=== PATIENT | male | born 1995 | race Caucasian/White ===

== ENCOUNTER → 2017-09-06 | Outpatient (REF) | payer BC | LOC: ZZSENDIN 10:50 | PROVIDERS: ATTEND Family Medicine | DX: R42 Dizziness and giddiness (principal); R50.9 Fever, unspecified | CPT/HCPCS: 82040; 82247; 82310; 82374; 82435; 82565; 82947; 84075; 84132; 84155; 84295; 84450; 84460; 84520; 85027 ==

== ENCOUNTER → 2018-08-22 | Outpatient (REF) | payer BC ==
[2018-08-22 15:36] LABS: PLATELET COUNT, AUTOMATED 249 K/uL (150-450)
== END ==
PROVIDERS: ATTEND Family Medicine
DX: J11.1 Influenza due to unidentified influenza virus with other respiratory manifestations (principal); J11.00 Influenza due to unidentified influenza virus with unspecified type of pneumonia
CPT/HCPCS: 82040; 82247; 82310; 82374; 82435; 82565; 82947; 84075; 84132; 84155; 84295; 84450; 84460; 84520; 85025; 86140; 87070

== ENCOUNTER → 2018-09-09 | Outpatient (CLI) | payer OTHER ==
--- NOTE | 2018-09-09 09:41 | RADIOLOGY IMAGING REPORT ---
FACILITY: [facility] - [place] PATIENT NAME: Kostas Manzo : 1995 MR: [id number] V: [id number] EXAM DATE: ORDERING PHYSICIAN: DINA RAMIREZ TECHNOLOGIST: Location: [facility] - [place] Patient: Kostas Manzo : 1995 Visit/Account:[id number] Date of Sevice: 09/09/2018 EXAMINATION: PA and Lateral Chest 09/09/2018 9:17 AM HISTORY: Cough. Chest tightness on right side. History of pleural effusion. COMPARISON: 08/22/2018 FINDINGS: Cardiomediastinal contours: Normal Lungs and pleura: Normal. No visible effusion. Bones/soft tissues: No acute finding. Slight pectus deformity. 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 IMPRESSION: No acute cardiopulmonary abnormality. Report Dictated By: Teto Reyes MD at 09/09/2018 9:33 AM Report E-Signed By: Teto Reyes MD at 09/09/2018 9:36 AM WSN:[email or web address]
== END ==
LOC: RAD 09:08
PROVIDERS: ATTEND Family Medicine
DX: R05 Cough (principal)
CPT/HCPCS: 71046